=== PATIENT | female | born 1995 | race Caucasian/White ===

== ENCOUNTER 2024-09-26 15:12 | Emergency (ER) | payer OTHER, SELFPAY ==
[2024-09-26 15:14] VITALS: BMI 35.6
--- NOTE | 2024-09-26 15:17 | EKG_ITS ---
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
--- NOTE | 2024-09-26 15:17 | EKG_ITS ---
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
[2024-09-26 15:24] VITALS: BP 122/82; PULSE 87; RESP 18; TEMP 37.1; O2SAT 97
--- NOTE | 2024-09-26 15:39 | XR_ITS ---
Examination: PA chest single view Technique: Upright PA chest single view Exam date and time: September 26, 2024 1535 hrs. Indications: Chest pain headaches beginning 3 days ago. Findings: Normal heart size Lungs are clear. The osseous structures are intact Impression: No active disease
--- NOTE | 2024-09-26 15:44 | PD.EDRME ---
Rapid Medical Screening Exam RME Arrival date/time: 09/26/24 15:12 This is a 28-year-old female presents to the emergency department with complaints of chest pain x 3 days. I have greeted and performed a focused initial assessment of this patient. Initial appropriate labs ordered at this time. A comprehensive ED assessment and evaluation of the patient and analysis of all test and completion of medical decision making process will be conducted by additional ED provider. Chief Complaint: Chest Pain Time Seen by Provider: 09/26/24 15:28 Vital signs: Vital Signs Temperature 98.8 F 09/26/24 15:24 Pulse Rate 87 09/26/24 15:24 Respiratory Rate 18 09/26/24 15:24 Blood Pressure 122/82 09/26/24 15:24 Pulse Oximetry (%) 97 09/26/24 15:24 Oxygen Delivery Method Room Air 09/26/24 15:24
[2024-09-26 16:17] LABS: Basophils # (Auto) 0.1 Thou/mm3 (0.0-0.2); Basophils % (Auto) 1 % (0-2.5); Eosinophils # (Auto) 0.2 Thou/mm3 (0.0-0.5); Eosinophils % (Auto) 2 % (0-10); Hematocrit 36.4 % (36.0-46.0); Hemoglobin 12.4 g/dL (12.0-16.0); Immature Granulocytes % (Auto) 0 % (0-0); Immature Granulocytes Auto 0.03 Thou/mm3 (0.00-0.00); Lymphocytes # (Auto) 3.4 Thou/mm3 (1.0-4.8); Lymphocytes % (Auto) 36 % (10-50); Mean Corpuscular HGB Conc 34.1 g/dl (31.0-37.0); Mean Corpuscular Hemoglobin 28.2 pg (25.0-35.0); Mean Corpuscular Volume 83 fL (80-100); Monocytes # (Auto) 0.6 Thou/mm3 (0.0-0.8); Monocytes % (Auto) 6 % (0-12); Neutrophils % (Auto) 55 % (37-80); Nucleated Red Blood Cell % 0 /100 WBC (0); Platelet Count 339 Thou/mm3 (140-440); White Blood Count 9.2 Thou/mm3 (3.6-11.0)
[2024-09-26 16:28] LABS: Prothrombin Time 10.8 Seconds (9.0-12.2)
[2024-09-26 16:40] LABS: Alanine Aminotransferase 57 U/L (10-49); Albumin, Serum 4.4 gm/dL (3.5-5.0); Albumin/Globulin Ratio 1.4 (1.2-2.2); Alkaline Phosphatase 95 U/L (46-116); Anion Gap 9 (7-16); Aspartate Amino Transferase 27 U/L (0-34); B-Type Natriuretic Peptide < 20 pg/mL (0-100); BUN/Creatinine Ratio 6 Ratio (12-20); Bilirubin,Total 0.6 mg/dL (0.3-1.2); Blood Urea Nitrogen 5 mg/dL (9-23); Calcium 9.7 mg/dL (8.3-10.6); Calcium (Corrected) 9.7 mg/dL (8.5-10.1); Chloride 100 mMol/L (98-107); Creatinine (Component) 0.8 mg/dL (0.6-1.3); Estimated Creatinine Clearance 106.2 mL/min (>60); Globulin 3.1 gm/dL (2.3-3.5); Glucose 99 mg/dL (74-106); Lipase 29 U/L (12-53); Magnesium 1.8 mg/dL (1.6-2.6); Osmolality,Calculated 269 (275-295); Potassium 3.1 mMol/L (3.4-5.1); Sodium 136 mMol/L (136-145); Total Protein 7.5 gm/dL (5.7-8.2); Troponin I < 0.002 ng/mL (0.0-0.045); eGFR > 60 See Note
[2024-09-26 16:57] LABS: HCG,Qualitative Serum Negative
[2024-09-26 19:06] LABS: Amphetamine/Methamp Scrn,U Negative (Negative); Barbiturate Screen,Urine Negative (Negative); Benzodiazepines Screen,Urine Negative (Negative); Benzoylecgonine Screen, Ur Negative (Negative); Fentanyl Screen,Urine Negative (Negative); Opiate Screen,Urine Negative (Negative); THC Screen,Urine Negative (Negative)
[2024-09-26 19:08] LABS: Troponin I < 0.002 ng/mL (0.0-0.045)
--- NOTE | 2024-09-26 20:33 | EDNOTE_ITS ---
<Statement entered by Karin Bridges MD - 09/26/24 23:41> As co-signing physician, I was present and available for consult prn. I concur with the plan and care as documented by the midlevel provider. ED Chest Pain RME/HPI General Chief Complaint: Chest Pain Stated Complaint: CP, dizzy, sob, MOFFETT Time Seen by Provider: 09/26/24 15:28 Arrival date/time: 09/26/24 15:12 RME / HPI RME / HPI narrative: 28-year-old female patient came in for evaluation regarding substernal chest pain this been going for the last 3 days, worse with deep breathing and coughing. Pain is described as dull ache, severity moderate. Patient denies any diaphoresis. Denies any chest trauma or fall. Denies any fever. Denies any cough. Related Data Previous Rx's ?Medication ?Instructions ?Recorded acetaminophen 500 mg capsule 1,000 mg (2 x 500 mg) PO Q6H PRN 10/09/22 fever or pain #30 caps ibuprofen 800 mg tablet 800 mg PO TID PRN pain #30 t abs 10/09/22 pantoprazole 40 mg tablet,delayed 40 mg PO QDAY #20 ta bs 09/26/24 release (Protonix) Allergies Allergy/AdvReac Type Severity Reaction Status Date / Time No Known Allergies Allergy Verified 10/08/22 18:31 Review of Systems Review of Systems Narrative Review of Systems: Review of system reviewed and within normal limits except mentioned in HPI ED Exam Narrative Physical exam: VITAL SIGNS: Reviewed. GENERAL APPEARANCE: Alert and interactive, follows commands, no acute distress, HEAD AND FACE: Non-traumatic. ENT: PERRL, pink conjunctivitis, eyelid no trauma, Mucous membrane moist. NECK: Supple, nontender, no nuchal rigidity. CHEST: No tenderness, no crepitus, no paradoxical movement, no retractions. LUNGS: Clear, well ventilated, symmetric, no rales, no wheezing, no ronchi, no stridor, good breath sounds bilaterally. HEART: Regular rate, regular rhythm, no murmur, no gallops. ABDOMEN: Soft, positive bowel sounds, nondistended, no guarding, nontender, no rebound, no masses, RECTAL: Deferred. GENITAL: Deferred. NEUROLOGICAL: Gross motor function intact sensory function intact, Appropriate for age. MUSCULOSKELETAL: low back nontender, full range of motion. EXTREMITIES: Nontender, full range of motion. SKIN: Color pink, dry, no rash, no lacerations, no abrasions, no contusions. LYMPHATICS: Deferred. Course Quality Measures none Orders Category Date Time Status Swimming Pool Installer STAT Care 09/26/24 15:39 Active EKG (ED ONLY) *Do not use* NOW Care 09/26/24 15:17 Completed Insert IV STAT Care 09/26/24 15:39 Active EKG (ED Only) Stat Exams 09/26/24 15:17 Draft EKG (ED Only) Urgent Exams 09/26/24 15:17 Draft XR chest 1V portable Stat Exams 09/26/24 15:39 Completed B-Type Natriuretic Peptide Stat Lab 09/26/24 15:53 Completed CBC Stat Lab 09/26/24 15:53 Completed Comprehensive Metabolic Panel Stat Lab 09/26/24 15:53 Completed Drug Screen,Urine Stat Lab 09/26/24 16:42 Completed HCG,Qualitative Serum Stat Lab 09/26/24 15:53 Completed Lipase Stat Lab 09/26/24 15:53 Completed Magnesium Stat Lab 09/26/24 15:53 Completed Prothrombin Time with INR Stat Lab 09/26/24 15:53 Completed Troponin I Stat Lab 09/26/24 15:53 Completed Troponin I Stat Lab 09/26/24 18:14 Completed KCL 10% Liq UDC 15 ML Med 09/26/24 19:50 Discontinued 40 meq PO X1 ONE Ketorolac Inj [Toradol Inj] Med 09/26/24 19:50 Discontinued 30 mg IM X1 ONE mg Hyd/Al Hyd/Hellen Susp [Maalox Susp] Med 09/26/24 20:30 Discontinued 30 ml PO X1 ONE Vital Signs Vital signs: Vital Signs Temperature 98.8 F 09/26/24 15:24 Pulse Rate 87 09/26/24 15:24 Respiratory Rate 18 09/26/24 15:24 Blood Pressure 122/82 09/26/24 15:24 Pulse Oximetry (%) 97 09/26/24 15:24 Oxygen Delivery Method Room Air 09/26/24 15:24 Chest Pain MDM Narrative MDM Narrative:: 28-year-old female patient came in for evaluation regarding substernal chest pain this been going for the last 3 days, worse with deep breathing and coughing. Pain is described as dull ache, severity moderate. Patient denies any diaphoresis. Denies any chest trauma or fall. Denies any fever. Denies any cough. Patient's cardiac workup all came back normal including troponin x 2 3 hours apart. Except for potassium 3.1. EKG also showed normal sinus rhythm, ventricular rate of 82 bpm, no ST segment elevation depression noted. Chest x- ray came back unremarkable results discussed with the patient. Patient was advised to follow-up with PCP and asked for referral to head of mathematics because used to see a head of mathematics back in [place]. For a leaky valve according to her. Patient appears nontoxic and hemodynamically stable. Patient discharged home and instructed to follow-up with primary care provider in 24 to 48 hours. Instructed to return to the emergency department immediately if worsening of symptoms Patient data External records reviewed:: None Clinical information provided by:: patient and family Social determinants that could affect healthcare access:: none Patient has the following chronic illnesses:: History of leaky valve How is presenting disease/condition affected by chronic disease/condition?: exacerbated by Evaluation data The following diagnostics were reviewed and interpreted by me:: lab results, radiology exam(s) and EKG tracing(s) Lab and/or radiology exams considered but not ordered:: None Interpretation Summary: See results in [facility] Medications / Prescriptions Medications or Prescriptions considered but not ordered:: None Medication administrations:: Medication Administration History Discontinued Medications Al Hydrox/Mg Hydrox/Simethicone (Mg Hyd/Al Hyd/Hellen (Maalox Reg) Susp 30 Ml Udc) 30 ml PO X1 ONE Stop: 09/26/24 20:31 Ketorolac Tromethamine (Ketorolac Inj 30 Mg/Ml Vial) 30 mg IM X1 ONE Stop: 09/26/24 19:51 Potassium Chloride (Potassium Chloride 10% 20 Meq/15 Ml Udc) 40 meq PO X1 ONE Stop: 09/26/24 19:51 Toradol potassium repletion Maalox Consultations Consultation(s) initiated? (list below): No Diagnosis Chest Pain Differential Diagnosis: pneumothorax, stable angina, chest pain and other Most likely diagnosis given after review of the tests above:: Chest pain probably secondary to GERD Admission Indicated Admission indicated?: not indicated Admission Request Was there a request for admission?: No Disposition Plan Disposition Plan: Discharge Discharge Attestation Discharge Attestation: The patient and all family members were given an opportunity to ask questions and understood the discharge instructions. Discharge instructions specifically effects, indications for sooner follow up or return to the emergency department, and the expected course of current diagnosis. Patient condition: Stable Discharge Plan Plan Patient Disposition: HOME (Self Care) Prescriptions/Referrals Prescriptions/Med Rec: New pantoprazole [Protonix] 40 mg tablet,delayed release (DR/EC) 40 mg PO QDAY Qty: 20 0RF No Action ibuprofen 800 mg tablet 800 mg PO TID PRN (Reason: pain) Qty: 30 0RF acetaminophen 500 mg capsule 1,000 mg PO Q6H PRN (Reason: fever or pain) Qty: 30 0RF Referrals: No Primary/Family,Physician [Primary Care Provider] - In 1 week Problem List Clinical Impression: Chest pain due to GERD Patient/Caregiver Discharge Instructions Discharge Activity: activity as tolerated Education Materials: ED GERD (Adult) Additional Instructions: Thank you for the opportunity for serving you today. You are stable for discharged . You are advised to: Follow-up with your PCP in 1 to 2 days and asked for referral to head of mathematics Return to ED for worsening of symptoms Increase oral fluids Take medication as prescribed Print Language: Libyan Stand Alone Forms: [employer] Award Info., Patient Portal Info Letter JOSHUA/DAVIDSON Supervising Physician JOSHUA/DAVIDSON Supervising Physician: MD Marge
[2024-09-26] MEDS: MG HYD/AL HYD/SIME (Maalox Reg) SUSP 30 ML UDC PO (20:54)
[2024-09-26] MEDS: POTASSIUM CHLORIDE 10% 20 MEQ/15 ML UDC 40 MEQ PO (20:57)
[2024-09-26] MEDS: KETOROLAC INJ 30 MG/ML VIAL IM (20:58)
== END 2024-09-26 21:14 | disposition home or self-care (01) ==
PROVIDERS: Nurse Practitioner Primary Care; Emergency Provider Emergency Medicine
DX: K21.9 Gastro-esophageal reflux disease without esophagitis (principal)
CPT/HCPCS: 36415; 71045; 80053; 80307; 83690; 83735; 83880; 84484; 84703; 85025; 85610; 93005; 96372; 99283; J1885; A9270

== ENCOUNTER 2025-01-05 15:51 | Emergency (ER) | payer OTHER, SELFPAY ==
[2025-01-05 15:52] VITALS: BMI 34.7
[2025-01-05 16:12] VITALS: BP 100/67; PULSE 93; RESP 18; TEMP 36.8; O2SAT 99
--- NOTE | 2025-01-05 16:30 | EDNOTE_ITS ---
ED Skin Abcess FB-RME/HPI General Chief complaint: Skin/Abscess/Foreign Body Stated complaint: RT EAR SWELLING S/P PIERCING Time Seen by Provider: 01/05/25 15:57 Arrival date/time: 01/05/25 15:51 29-year-old female presents emergency department today states she has a piercing in place to the right ear patient concerned that she has pain patient went to primary care doctor they started her antibiotics but reports pain still present Limitations: no limitations Related Data Previous Rx's ?Medication ?Instructions ?Recorded acetaminophen 500 mg capsule 1,000 mg (2 x 500 mg) PO Q6H PRN 10/09/22 fever or pain #30 caps ibuprofen 800 mg tablet 800 mg PO TID PRN pain #30 t abs 10/09/22 pantoprazole 40 mg tablet,delayed 40 mg PO QDAY #20 ta bs 09/26/24 release (Protonix) Allergies Allergy/AdvReac Type Severity Reaction Status Date / Time No Known Allergies Allergy Verified 01/05/25 15:55 Review of Systems Review of Systems Systems Reviewed: All systems reviewed, normal except as documented Constitutional Constitutional: Reports system reviewed and no additional complaints, except as documented, Denies fever(s) and Denies headache(s) Eyes Eyes: Reports system reviewed and no additional complaints, except as documented and Denies blurry vision ENT Ears, Nose, Mouth, and Throat: Reports system reviewed and no additional complaints, except as documented, Denies headache(s), Denies nasal congestion, Denies nasal discharge and Reports other (Right ear infection piercing site) Cardiovascular Cardiovascular: Reports system reviewed and no additional complaints, except as documented, Denies chest pain and Denies dyspnea Respiratory Respiratory: Reports system reviewed and no additional complaints, except as documented, Denies chest congestion, Denies cough and Denies dyspnea Gastrointestinal Gastrointestinal: Reports system reviewed and no additional complaints, except as documented and Denies abdominal pain Integumentary/Breasts Skin/Breast: Reports system reviewed and no additional complaints, except as documented and Denies rash Neurologic Neurologic: Reports system reviewed and no additional complaints, except as documented, Reports as per HPI and Denies headache(s) Past Medical History Past Medical History CARDIAC: Negative Congestive Heart Failure RESPIRATORY: Negative Chronic Obstructive Pulmonary Disease (COPD) GENITOURINARY: Negative Renal Disease ENDOCRINE: Negative Diabetes Mellitus Type 1 or Diabetes Mellitus Type 2 Social History SMOKING STATUS: Never smoker ED Exam General Limitations: Present no limitations General appearance: Present alert and in no apparent distress Head Head exam: Present atraumatic, normocephalic and normal inspection Eye Eye exam: Present normal appearance, PERRL and EOMI; Absent conjunctival injection ENT ENT exam: Present mucous membranes moist and other (Right outer ear infection) Neck Neck exam: Present normal inspection, full ROM and trachea midline Chest Chest inspection: Present normal inspection and symmetric chest wall rise Respiratory Respiratory exam: Present normal lung sounds bilaterally Cardiovascular Cardiovascular exam: Present regular rate, normal rhythm and normal heart sounds Abdominal Exam Abdominal exam: Present soft and normal bowel sounds Extremities Exam Extremities exam: Present normal inspection and full ROM Back Exam Back exam: Present normal inspection and full ROM Neurological Exam Neurological exam: Present alert, oriented X3 and CN II-XII intact Psychiatric Psychiatric exam: Present normal affect and normal mood Skin Skin exam: Present warm, dry, intact and normal color Course Quality Measures none Vital Signs Vital signs: Vital Signs Temperature 98.3 F 01/05/25 16:12 Pulse Rate 93 01/05/25 16:12 Respiratory Rate 18 01/05/25 16:12 Blood Pressure 100/67 01/05/25 16:12 Pulse Oximetry (%) 99 01/05/25 16:12 Oxygen Delivery Method Room Air 01/05/25 16:12 O2 saturation 99% room air within normal limits Skin / Abscess / Foreign Body MDM Narrative MDM Narrative:: 29-year-old female presents emergency department today states she has a piercing in place to the right ear patient concerned that she has pain patient went to primary care doctor they started her antibiotics but reports pain still present On exam patient well-appearing patient does not appear toxic no acute distress Patient has a ear piercing in place to the right ear piercing is removed in its entirety patient instructed take the antibiotic prescribed by No significant cellulitis no evidence of abscess Patient discharged home in no distress to follow-up with primary care doctor in the next 24 to 48 hours and for any worsening symptoms to return to the ER immediately Patient data External records reviewed:: [facility] previous records Clinical information provided by:: patient Social determinants that could affect healthcare access:: none Patient has the following chronic illnesses:: None How is presenting disease/condition affected by chronic disease/condition?: no chronic disease Evaluation data The following diagnostics were reviewed and interpreted by me:: other (specify) (N/A) Lab and/or radiology exams considered but not ordered:: Considered not ordered Interpretation Summary: N/A Medications / Prescriptions Medications or Prescriptions considered but not ordered:: Given no meds Medication administrations:: Given no meds Consultations Consultation(s) initiated? (list below): No Diagnosis Skin/Abscess Differential Diagnosis: abscess of skin or subcutaneous tissue and cellulitis Most likely diagnosis given after review of the tests above:: Ear piercing right ear Admission Indicated Admission indicated?: not indicated Admission Request Was there a request for admission?: No Disposition Plan Disposition Plan: Discharge Discharge Attestation Discharge Attestation: The patient and all family members were given an opportunity to ask questions and understood the discharge instructions. Discharge instructions specifically effects, indications for sooner follow up or return to the emergency department, and the expected course of current diagnosis. Patient condition: Stable Discharge Plan Plan Patient Disposition: HOME (Self Care) Discharge Disposition comment: Stable Prescriptions/Referrals Prescriptions/Med Rec: No Action ibuprofen 800 mg tablet 800 mg PO TID PRN (Reason: pain) Qty: 30 0RF acetaminophen 500 mg capsule 1,000 mg PO Q6H PRN (Reason: fever or pain) Qty: 30 0RF pantoprazole [Protonix] 40 mg tablet,delayed release (DR/EC) 40 mg PO QDAY Qty: 20 0RF Problem List Clinical Impression: Pierced ear infection Patient/Caregiver Discharge Instructions Education Materials: Anatomy of the Ear Additional Instructions: Please follow up with your primary care doctor in the next 24-48hrs for any worsening symptoms return here immediately Print Language: Turkish Stand Alone Forms: [employer] Award Info., Patient Portal Info Letter PA/DAVIDSON Supervising Physician JOSHUA/DAVIDSON Supervising Physician: Dr. jeter
== END 2025-01-05 16:35 | disposition home or self-care (01) ==
LOC: SERX 16:47
PROVIDERS: Emergency Provider Emergency Medicine
DX: L08.9 Local infection of the skin and subcutaneous tissue, unspecified (principal)
CPT/HCPCS: 99281

== ENCOUNTER 2025-01-21 12:20 | Emergency (ER) | payer OTHER, SELFPAY ==
[2025-01-21 12:30] VITALS: BP 103/70; PULSE 81; RESP 17; TEMP 36.6; O2SAT 97; BMI 33.8
--- NOTE | 2025-01-21 12:35 | EDNOTE_ITS ---
ED Chest Pain RME/HPI General Chief Complaint: Shortness of Breath/Dyspnea Stated Complaint: Sternal pain X 6 days, SOB Time Seen by Provider: 01/21/25 12:39 Arrival date/time: 01/21/25 12:20 RME / HPI RME / HPI narrative: DR. CORDERO MAIN ED EVALUATION: This section includes all my notes and documentations, including HPI, PE, and ED course.? Nirmal Cordero MD HPI: 29 year old female with past medical history significant for heart failure and cholecystectomy presents to the Emergency Department with anterior chest pain for a week. Pain is described as stabbing, sharp, and rated severe. Movement and deep breaths exacerbate the pain. Associated symptoms include occasional nausea. No vomiting or diarrhea. No fevers or chills. No recent illness. No other complaints reported. ROS: All negative except as documented in HPI. Physical Exam: General:? Alert and oriented.? In obvious pain. Eyes:? Conjunctivae and lids clear. ENT:? No nasal congestion.? ? Neck:? Supple. Heart:? RRR. Lungs:? No respiratory distress.? Good air movement.? No rhonchi, wheezing, rales.? Chest: Palpation of the sternum reproduces her severe pain. Abdomen:? Soft and nontender.? Legs:? No clubbing, cyanosis, edema. Skin:? Warm and dry.? Neuro:? Alert and oriented X 3.? I reviewed all diagnostic test results. My interpretation of the EKG is?sinus rhythm with nonspecific ST?T changes. My interpretation of the chest x-ray is NAD. Blood tests remarkable for negative troponin/D-dimer/BNP and K 3.2. At this point, diagnoses include costochondritis. Treatment here included Toradol 60 mg IM and two Tylenol #3 and oral KCl 40 mEq. Significant improvement noted. Recommended supportive care. Based on my best medical judgment, made decision no further evaluation or treatment indicated at this time.? Patient understands and agrees to the discharge instructions customized and printed, see below. Discharge instructions from Dr. Cordero: 1. After extensive evaluation, there is no life-threatening condition.? Such as heart attack or pulmonary embolism (blood clots in your lungs) or pneumothorax (collapsed lung). 2. Your pain is originating from the chest wall and not from an internal organ.? The chest wall has many joints and muscles between the ribs, so sprains and strains are common.?? See attached handout on costochondritis. 3. Apply ice or heat if helpful.? Toradol 10 mg every 6-8 hours today and tomorrow to decrease inflammation then as needed. Lidocaine patches and Tylenol with codeine as needed. 4. See a private doctor on 01/25/2025. To make sure there is no serious underlying heart condition, ask to help you get more tests for your heart that cannot be done here in the ER.? Such as Holter Monitor (cardiac monitoring at home from a day to even a month), heart stress test (on treadmill or with medication), echocardiogram (imaging of your heart structures), heart catherization (checking for blockages in your heart arteries), and a referral to see a Lubrication Servicer.? 5. Seek immediate medical care with worsening or with any concerns.?? Nirmal Cordero MD Related Data Previous Rx's ?Medication ?Instructions ?Recorded acetaminophen 500 mg capsule 1,000 mg (2 x 500 mg) PO Q6H PRN 10/09/22 fever or pain #30 caps ibuprofen 800 mg tablet 800 mg PO TID PRN pain #30 t abs 10/09/22 pantoprazole 40 mg tablet,delayed 40 mg PO QDAY #20 ta bs 09/26/24 release (Protonix) acetaminophen 300 mg-codeine 30 mg 2 tab PO Q8H PRN pa in #20 tabs 01/21/25 tablet ketorolac 10 mg tablet 10 mg PO Q8H PRN pain 5 days #10 01/21/25 tabs lidocaine 5 % topical patch 2 patch topical QDAY PRN p ain #30 01/21/25 (Lidoderm) ea Allergies Allergy/AdvReac Type Severity Reaction Status Date / Time No Known Allergies Allergy Verified 01/21/25 12:25 Course Quality Measures none Orders Category Date Time Status EKG (ED ONLY) *Do not use* NOW Care 01/21/25 12:36 Completed EKG (ED Only) Stat Exams 01/21/25 12:36 Draft XR chest 1V portable Stat Exams 01/21/25 12:36 Completed BNP [B-Type Natriuretic Peptide] Stat Lab 01/21/25 12:54 Completed Bilirubin,Direct Stat Lab 01/21/25 12:54 Completed CBC Stat Lab 01/21/25 12:54 Completed CMP [Comprehensive Metabolic Panel] Stat Lab 01/21/25 12:54 Completed D-Dimer Stat Lab 01/21/25 12:54 Completed HCG,Qualitative Serum Stat Lab 01/21/25 12:54 Completed Magnesium Stat Lab 01/21/25 12:54 Completed Troponin I Stat Lab 01/21/25 12:54 Completed ACETAMINOPHEN w/COD 300-30 [Tylenol w/Cod #3] Med 01/21/25 12:35 Discontinued 2 tab PO X1 ONE KCL 10% Liq UDC 15 ML Med 01/21/25 13:46 Discontinued 40 meq PO X1 ONE Ketorolac Inj [Toradol Inj] Med 01/21/25 12:35 Discontinued 60 mg IM X1 ONE Vital Signs Vital signs: Vital Signs Temperature 97.8 F 01/21/25 12:30 Pulse Rate 81 01/21/25 12:30 Respiratory Rate 17 01/21/25 12:30 Blood Pressure 103/70 01/21/25 12:30 Pulse Oximetry (%) 97 01/21/25 12:30 Oxygen Delivery Method Room Air 01/21/25 12:30 Chest Pain MDM Narrative MDM Narrative:: IEdith am scribing for and in the presence of Dr. Cordero. 29 year old female with past medical history significant for heart failure and cholecystectomy presents to the Emergency Department with anterior chest pain for a week. Pain is described as stabbing, sharp, and rated severe. Movement and deep breaths exacerbate the pain. Associated symptoms include occasional nausea. No vomiting or diarrhea. No fevers or chills. No recent illness. No other complaints reported. Patient data External records reviewed:: [facility] previous records Clinical information provided by:: patient Social determinants that could affect healthcare access:: none Patient has the following chronic illnesses:: Heart failure and cholecystectomy How is presenting disease/condition affected by chronic disease/condition?: exacerbated by Evaluation data The following diagnostics were reviewed and interpreted by me:: lab results, radiology exam(s) and EKG tracing(s) (My interpretation of the EKG is: Sinus rhythm (77 bpm) with nonspecific ST-T changes. Nirmal Cordero MD) Lab and/or radiology exams considered but not ordered:: none Interpretation Summary: I reviewed all diagnostic test results. My interpretation of the EKG is?sinus rhythm with nonspecific ST?T changes. My interpretation of the chest x-ray is NAD. Blood tests remarkable for negative troponin/D-dimer/BNP and K 3.2. Medications / Prescriptions Medications or Prescriptions considered but not ordered:: none Medication administrations:: Medication Administration History Discontinued Medications Acetaminophen/Codeine Phosphate (Acetaminophen W/Cod 300-30 Tablet) 2 tab PO X1 ONE Stop: 01/21/25 12:36 Last Admin: 01/21/25 13:44 Dose: 2 tab Documented By: Ketorolac Tromethamine (Ketorolac Inj 60 Mg/2 Ml Vial) 60 mg IM X1 ONE Stop: 01/21/25 12:36 Last Admin: 01/21/25 13:46 Dose: 60 mg Documented By: Potassium Chloride (Potassium Chloride 10% 20 Meq/15 Ml Udc) 40 meq PO X1 ONE Stop: 01/21/25 13:47 Last Admin: 01/21/25 13:51 Dose: 40 meq Documented By: Treatment here included Toradol 60 mg IM and two Tylenol #3 and oral KCl 40 mEq. Consultations Consultation(s) initiated? (list below): No Diagnosis Chest Pain Differential Diagnosis: fracture of rib, pneumothorax, stable angina, unstable angina pectoris, atypical chest pain, st elevation myocardial infarction, costochondritis, chest pain and biliary colic Most likely diagnosis given after review of the tests above:: Costochondritis Admission Indicated Admission indicated?: not indicated Explain why admission is indicated or not indicated:: With significant improvement with no serious condition, there was no indication for admission. Admission Request Was there a request for admission?: No Disposition Plan Disposition Plan: Discharge Discharge Attestation Discharge Attestation: The patient and all family members were given an opportunity to ask questions and understood the discharge instructions. Discharge instructions specifically effects, indications for sooner follow up or return to the emergency department, and the expected course of current diagnosis. Patient condition: Stable Discharge Plan Plan Patient Disposition: HOME (Self Care) Prescriptions/Referrals Prescriptions/Med Rec: New acetaminophen-codeine 300-30 mg tablet 2 tab PO Q8H MDD 6 PRN (Reason: pain) Qty: 20 0RF ketorolac 10 mg tablet 10 mg PO Q8H PRN (Reason: pain) 5 Days Qty: 10 0RF lidocaine [Lidoderm] 5 % adhesive patch,medicated 2 patch topical QDAY PRN (Reason: pain) Qty: 30 0RF Rx Instructions: leave on most painful area for up to 12 hrs No Action ibuprofen 800 mg tablet 800 mg PO TID PRN (Reason: pain) Qty: 30 0RF acetaminophen 500 mg capsule 1,000 mg PO Q6H PRN (Reason: fever or pain) Qty: 30 0RF pantoprazole [Protonix] 40 mg tablet,delayed release (DR/EC) 40 mg PO QDAY Qty: 20 0RF Problem List Clinical Impression: Costochondritis Patient/Caregiver Discharge Instructions Discharge Activity: activity as tolerated Education Materials: ED Chest Wall Pain, Costochondritis Additional Instructions: Discharge instructions from Dr. Cordero: 1. After extensive evaluation, there is no life-threatening condition.? Such as heart attack or pulmonary embolism (blood clots in your lungs) or pneumothorax (collapsed lung). 2. Your pain is originating from the chest wall and not from an internal organ.? The chest wall has many joints and muscles between the ribs, so sprains and strains are common.?? See attached handout on costochondritis. 3. Apply ice or heat if helpful.? Toradol 10 mg every 6-8 hours today and tomorrow to decrease inflammation then as needed. Lidocaine patches and Tylenol with codeine as needed. 4. See a private doctor on 01/25/2025. To make sure there is no serious underlying heart condition, ask to help you get more tests for your heart that cannot be done here in the ER.? Such as Holter Monitor (cardiac monitoring at home from a day to even a month), heart stress test (on treadmill or with medication), echocardiogram (imaging of your heart structures), heart catherization (checking for blockages in your heart arteries), and a referral to see a Lubrication Servicer.? 5. Seek immediate medical care with worsening or with any concerns.?? Print Language: Armenian Stand Alone Forms: [employer] Award Info., Patient Portal Info Letter
--- NOTE | 2025-01-21 12:36 | XR_ITS ---
Examination: PA chest single view TECHNIQUE: Upright PA chest single view Date and time: 09/23/2024 1245 hours Comparison September 26, 2024 INDICATIONS: Chest pain shortness of breath dizziness beginning 6 days ago FINDINGS: Normal heart size Lungs are clear. Osseous structures are intact IMPRESSION: No active disease
--- NOTE | 2025-01-21 12:36 | EKG_ITS ---
[facility] Test Date: 2025-01-21 Pat Name: MINO HIRSCH Department: Room: - Gender: Female [employer]: : 1995 Requested By: Nirmal Laird Order Number: [id number] Reading MD: Nirmal Laird Measurements Intervals [place] Rate: 77 P: 72 [place]: 140 QRS: 26 QRSD: 88 T: 249 QT: 381 QTc: 434 Interpretive Statements SINUS RHYTHM LOW QRS VOLTAGE IN PRECORDIAL LEADS [QRS DEFLECTION < 1.0 mV IN CHEST LEADS] ST DEVIATION AND MODERATE T-WAVE ABNORMALITY, CONSIDER INFERIOR ISCHEMIA [-0.1+ mV T-WAVE IN II/aVF] Compared to ECG 09/26/2024 15:22:20 Low QRS voltage now present T-wave abnormality still present Possible ischemia still present /store/S0/[id number]/ecg/[id number].pdf
[2025-01-21 13:06] LABS: Basophils # (Auto) 0.1 Thou/mm3 (0.0-0.2); Basophils % (Auto) 1 % (0-2.5); Eosinophils # (Auto) 0.2 Thou/mm3 (0.0-0.5); Eosinophils % (Auto) 2 % (0-10); Hematocrit 35.4 % (36.0-46.0); Hemoglobin 12.1 g/dL (12.0-16.0); Immature Granulocytes % (Auto) 0 % (0-0); Immature Granulocytes Auto 0.02 Thou/mm3 (0.00-0.00); Lymphocytes # (Auto) 3.7 Thou/mm3 (1.0-4.8); Lymphocytes % (Auto) 41 % (10-50); Mean Corpuscular HGB Conc 34.2 g/dl (31.0-37.0); Mean Corpuscular Hemoglobin 29.1 pg (25.0-35.0); Mean Corpuscular Volume 85 fL (80-100); Monocytes # (Auto) 0.5 Thou/mm3 (0.0-0.8); Monocytes % (Auto) 6 % (0-12); Neutrophils # (Auto) 4.5 Thou/mm3 (1.8-7.7); Neutrophils % (Auto) 50 % (37-80); Nucleated Red Blood Cell % 0 /100 WBC (0); Platelet Count 304 Thou/mm3 (140-440); RDW Standard Deviation 40.2 fL (36.4-46.3); Red Blood Count 4.16 Miln/mm3 (4.00-5.20)
[2025-01-21 13:24] LABS: B-Type Natriuretic Peptide < 20 pg/mL (0-100)
[2025-01-21 13:25] LABS: Alanine Aminotransferase 48 U/L (10-49); Albumin, Serum 4.7 gm/dL (3.5-5.0); Albumin/Globulin Ratio 1.8 (1.2-2.2); Alkaline Phosphatase 92 U/L (46-116); Anion Gap 9 (7-16); Aspartate Amino Transferase 34 U/L (0-34); BUN/Creatinine Ratio 9 Ratio (12-20); Bilirubin,Direct 0.2 mg/dL (0.0-0.3); Bilirubin,Total 0.5 mg/dL (0.3-1.2); Blood Urea Nitrogen 7 mg/dL (9-23); Calcium 9.6 mg/dL (8.3-10.6); Calcium (Corrected) 9.6 mg/dL (8.5-10.1); Carbon Dioxide 27.6 mMol/L (20.0-31.0); Chloride 98 mMol/L (98-107); Creatinine (Component) 0.8 mg/dL (0.6-1.3); Estimated Creatinine Clearance 102.3 mL/min (>60); Globulin 2.6 gm/dL (2.3-3.5); Glucose 105 mg/dL (74-106); Osmolality,Calculated 268 (275-295); Potassium 3.2 mMol/L (3.4-5.1); Sodium 135 mMol/L (136-145); Total Protein 7.3 gm/dL (5.7-8.2); Troponin I < 0.002 ng/mL (0.0-0.045); eGFR > 60 See Note
[2025-01-21 13:27] LABS: HCG,Qualitative Serum Negative
[2025-01-21 13:32] LABS: D-Dimer < 250 ng/mL (<600)
[2025-01-21] MEDS: ACETAMINOPHEN w/COD 300-30 TABLET 2 TAB PO (13:44)
[2025-01-21] MEDS: KETOROLAC INJ 60 MG/2 ML VIAL IM (13:46)
[2025-01-21] MEDS: POTASSIUM CHLORIDE 10% 20 MEQ/15 ML UDC 40 MEQ PO (13:51)
== END 2025-01-21 13:55 | disposition home or self-care (01) ==
LOC: SERX 14:04
PROVIDERS: Emergency Provider Emergency Medicine; PCP Pediatrics
DX: M94.0 Chondrocostal junction syndrome [Tietze] (principal); R94.31 Abnormal electrocardiogram [ECG] [EKG]; I50.9 Heart failure, unspecified
CPT/HCPCS: 36415; 71045; 80053; 82248; 83735; 83880; 84484; 84703; 85025; 85379; 93005; 96372; 99283; J1885; A9270